=== PATIENT | female | born 1955 | race Caucasian/White ===

== ENCOUNTER 2020-11-12 10:24 | Emergency (ER) | payer MEDICAID ==
[~2020-11-12] VITALS: Ht 157.5 cm; Wt 68.9 kg
[2020-11-12] MEDS ORDERED: ACETAMINOPHEN WITH CODEINE 1 TAB TAB PO SCH (11:30)
[2020-11-12 12:44] VITALS: BP 140/76
== END 2020-11-12 12:52 | disposition home or self-care (01) ==
LOC: EDH 10:24
DX: G89.29 Other chronic pain (principal); M25.551 Pain in right hip
CPT/HCPCS: 73552

== ENCOUNTER 2023-04-26 16:24 | Emergency (ER) | payer OTHER, MEDICARE ==
[~2023-04-26] VITALS: Ht 157.5 cm; Wt 54.4 kg
[2023-04-26 16:37] VITALS: BP 148/72; PULSE 76; RESP 16
[2023-04-26] MEDS ORDERED: ACETAMINOPHEN 500 MG TABLET PO ONE (17:00)
[2023-04-26] MEDS ORDERED: METH4TAB3 PO (18:40)
== END 2023-04-26 18:57 | disposition home or self-care (01) ==
LOC: EDH 16:24
DX: M16.11 Unilateral primary osteoarthritis, right hip (principal); G89.29 Other chronic pain; M25.551 Pain in right hip; I48.91 Unspecified atrial fibrillation; F17.200 Nicotine dependence, unspecified, uncomplicated
CPT/HCPCS: 73502